=== PATIENT | male | born 1955 | race Two or more races ===

== ENCOUNTER 2021-02-01 16:00 | Emergency (ER) | payer OTHER ==
[~2021-02-01] VITALS: Ht 182.9 cm; Wt 104.3 kg
[2021-02-01] MEDS ORDERED: TOPROL XL25 M1 (16:07)
[2021-02-01] MEDS ORDERED: LIPITOR20 MG (16:08)
[2021-02-01] MEDS ORDERED: TAMS0.4C PO (19:50)
[2021-02-01] MEDS ORDERED: ULTRACET PO (19:50)
[2021-02-01] MEDS ORDERED: CEFDINIR300 MG PO (19:50)
== END 2021-02-01 20:08 | disposition home or self-care (01) ==
LOC: ER 16:00
DX: N20.1 Calculus of ureter (principal); R10.31 Right lower quadrant pain

== ENCOUNTER 2021-11-20 14:03 | Emergency (ER) | payer OTHER ==
[~2021-11-20] VITALS: Ht 182.9 cm; Wt 99.8 kg
[~2021-11-20 14:03] MED LIST: CEFDINIR300 MG PO; LIPITOR20 MG; TAMS0.4C PO; TOPROL XL25 M1; ULTRACET PO
[2021-11-20] MEDS ORDERED: BAYER THERAPY325 MG PO (14:18)
[2021-11-20] MEDS ORDERED: CIPRO500 MG PO (20:51)
[2021-11-20] MEDS ORDERED: KETO10TA2 PO (20:51)
[2021-11-20] MEDS ORDERED: TAMS0.4C PO (20:51)
== END 2021-11-20 21:04 | disposition home or self-care (01) ==
LOC: ER 14:03
DX: N20.0 Calculus of kidney (principal); N20.1 Calculus of ureter